=== PATIENT | male | born 2000 | race Caucasian/White ===

== ENCOUNTER 2021-07-11 10:25 | Emergency (ER) | payer OTHER, SELFPAY ==
--- NOTE | ~2021-07-11 | XR_ITS ---
EXAMINATION: XR shoulder RT min 2V EXAM DATE: 07/11/2021 10:45 INDICATION: poss dislocation TECHNIQUE: Frontal and lateral projections of the right shoulder. There is no prior study for compar asaf. FINDINGS: There are no acute right shoulder fractures or dislocations identified. There is no subcut aneous gas. The soft tissue is unremarkable. There are no radiopaque foreign bodies. IMPRESSION: No acute osseous findings. Reviewed, dictated and finalized at location A. CRUSHER OPERATOR IMPRESSION: No acute osseous findings.
[2021-07-11 10:37] VITALS: BP 115/60; PULSE 63; RESP 16; TEMP 37.1; O2SAT 100
[2021-07-11] MEDS: MORPHINE SULFATE (*CRX) 4 MG/ML INJ IV PUSH (10:49)
[2021-07-11] MEDS: ONDANSETRON INJ 4 MG/2 ML VIAL IV PUSH (10:49)
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
[2021-07-11 10:54] VITALS: BP 142/68; PULSE 87; RESP 16; TEMP 36.4; O2SAT 100
[2021-07-11 11:33] VITALS: BP 114/91; PULSE 65; RESP 18; TEMP 36.7; O2SAT 99
[2021-07-11 11:58] VITALS: BP 118/78; PULSE 94; RESP 18; TEMP 36.6
== END 2021-07-11 11:58 | disposition home or self-care (01) ==
PROVIDERS: Emergency Provider Emergency Medicine
DX: G89.11 Acute pain due to trauma (principal); S49.91XA Unspecified injury of right shoulder and upper arm, initial encounter; V00.131A Fall from skateboard, initial encounter; Y93.51 Activity, roller skating (inline) and skateboarding
CPT/HCPCS: 73030; 96374; 96375; 99284; A4565; J2270; J2405